=== PATIENT | female | born 1965 | race Caucasian/White ===

== ENCOUNTER 2017-01-15 14:14 | Observation (INO) | payer BC ==
[~2017-01-15] VITALS: Ht 167.6 cm; Wt 85.0 kg
[2017-01-15] VITALS (8 sets, daily range): BP systolic 113–158; BP diastolic 58–95; PULSE 78–84; RESP 16–18; TEMP 97.8–98.5; O2SAT 97–100
[~2017-01-15 14:14] MED LIST: ATOR40TA16 PO; CEFT500T3 PO; CHOL1CAP2 PO; GLIP10TA67 PO; LISI10TA PO; METF1000 PO; METO50TA11 PO
--- NOTE | 2017-01-15 14:30 | PD ---
Physical Exam Time Seen by Provider: 14:29 Narrative 51-year-old female with complaint of chest pain and shortness of breath on and off for the past couple weeks. More frequent occurrences of chest pain recently. Relieved by nitroglycerin that she took earlier today. Chest pain has returned. Dr. Juarez is slab off mill tender. Patient seen in triage. VS reviewed. Awaiting bed placement. Data Data Last Documented VS Vital Signs Date Time Temp Pulse Resp B/P (MAP) Pulse Ox O2 Delivery O2 Flow Rate FiO2 01/15/17 14:16 98.5 78 18 158/95 (116) 98 Orders Orders Electrocardiogram (01/15/17 ) MDM Supervised Visit with SUJATHA: Naa Hughes Jan 15, 2017 14:30
[2017-01-15] MEDS ORDERED: ASPI81CH3 PO (15:12)
[2017-01-15] MEDS ORDERED: NITR0.4S SL (15:13)
[2017-01-15] MEDS ORDERED: ASPIRIN 325 MG TAB PO ONE (15:15)
[2017-01-15 15:17] LABS: BASOPHIL % 0.5 % (0.0-2.0); EOSINOPHIL # 0.2 TH/MM3 (0-0.4); EOSINOPHIL % 2.3 % (0.0-4.0); HEMATOCRIT 38.2 % (35.0-46.0); HEMO FLAGS DIFF FINAL; LYMPH % 37.2 % (9.0-44.0); LYMPHOCYTE # 3.5 TH/MM3 (1.0-4.8); MEAN CELL VOLUME 84.4 FL (80.0-100.0); MEAN CORPUSCULAR HGB CONC 33.2 % (32.0-36.0); MONO % 6.7 % (0.0-8.0); NEUT % 53.3 % (16.0-70.0); PLATELET COUNT 360 TH/MM3 (150-450); RED BLOOD COUNT 4.52 MIL/MM3 (4.00-5.30); RED CELL DISTRIBUTION WIDTH 13.1 % (11.6-17.2); WHITE BLOOD COUNT 9.3 TH/MM3 (4.0-11.0)
[2017-01-15 15:44] LABS: ANION GAP 6 MEQ/L (5-15); BICARBONATE 28.4 MEQ/L (21.0-32.0); BLOOD UREA NITROGEN 13 MG/DL (7-18); CHLORIDE 103 MEQ/L (98-107); GLOMERULAR FILTRATION RATE 81 ML/MIN (>89); POTASSIUM 4.5 MEQ/L (3.5-5.1); SODIUM (NA) 137 MEQ/L (136-145)
[2017-01-15 15:46] LABS: CREATINE KINASE 125 U/L (26-192)
--- NOTE | 2017-01-15 15:50 | RADRPT ---
EXAM DATE/TIME: 01/15/2017 15:29 [facility] COMPARISON: CHEST SINGLE AP, April 20, 2016, 10:56. INDICATIONS : Chest pain. MEDICAL HISTORY : None. SURGICAL HISTORY : None. ENCOUNTER: Initial ACUITY: 2 weeks PAIN SCORE: 5/10 LOCATION: Bilateral chest FINDINGS: PA and lateral views of the chest demonstrate the lungs to be symmetrically aerated without evidence of mass, infiltrate or effusion. The cardiomediastinal contours are unremarkable. Osseous structure s are intact. CONCLUSION: 1. No acute cardiopulmonary findings. Brian Pavon MD on January 15, 2017 at 15:48 Board Certified Radiologist. This report was verified electronically.
[2017-01-15 15:59] LABS: CKMB 1.2 NG/ML (0.5-3.6)
[2017-01-15 16:26] LABS: APTT (PATIENT) 24.8 SEC (24.3-30.1); INTERNATIONAL NORMALIZED RATIO 0.9 RATIO; PROTHROMBIN TIME - PATIENT 10.2 SEC (9.8-11.6)
[2017-01-15] MEDS ORDERED: SODIUM CHLORIDE 0.9% FLUSH 10 ML FLUSH IV FLUSH PRN (17:00)
--- NOTE | 2017-01-15 17:14 | PD ---
HPI Chief Complaint: Chest Pain Time Seen by Provider: 15:00 Travel History International Travel<30 days: No Contact w/Intl Traveler<30days: No Traveled to known affect area: No History of Present Illness HPI 51-year-old female that presents to the ED for evaluation of chest pain. Patient reports that she's had chest pain on and off for the past 3 weeks. She' ll follow with Dr. Patel who did an echocardiogram and was given a do a stress test in 2 weeks when he comes back from vacation. per patient the symptoms have progressively gotten worse and she is taking more nitroglycerin. She's never had taken nitroglycerin before and she was prescribed this by the grease man to help with the symptoms which does seem to help but she continues to have frequent episodes. Per patient usually would she exerts herself. Today she came here today because she also developed shortness of breath or her symptoms and she has no chest pain at this time but she states that the chest pain today was sharp and pressure-like and the nitroglycerin made it better. She states that the pain was 7 out of 10. Currently she states that the only symptom she has a shortness of breath. She does have a history of hypertension and diabetes. She's never had a stent. Per patient her last heart cath well as stress test was done 4 years ago. No allergies to medication. She has been taking aspirin. No Allergies to medication. No other medical issues at this time. She does have family history of heart disease. PFSH Past Medical History Autoimmune Disease: No Blood Disorders: No Heart Rhythm Problems: No Cancer: No Cardiac Catheterization: Yes (NO STENTS AT [facility]) Cardiovascular Problems: Yes High Cholesterol: Yes Chemotherapy: No Chest Pain: Yes Congestive Heart Failure: No Cerebrovascular Accident: No Coronary Artery Disease: Yes Diabetes: Yes Patient Takes Glucophage: No Diminished Hearing: No Endocrine: No Genitourinary: No Hypertension: Yes Medical other: Yes Musculoskeletal: No Neurologic: No Psychiatric: No Reproductive: No Respiratory: No Migraines: No Myocardial Infarction: No Seizures: No Sickle Cell Disease: No Triglycerides - High: Yes Influenza Vaccination: Yes ?: Not : 3 Para: 3 Tubal Ligation: Yes (1988) Past Surgical History Abdominal Surgery: No Cardiac Surgery: No Coronary Artery Bypass Graft: No Ear Surgery: No Endocrine Surgery: No Eye Surgery: No Genitourinary Surgery: No Gynecologic Surgery: No Oral Surgery: No Thoracic Surgery: No Family History Family Myocardial Infarction: Yes Social History Alcohol Use: No Tobacco Use: Yes (quit 1 years ago) Substance Use: No Allergies-Medications (Allergen,Severity, Reaction): Coded Allergies: No Known Allergies (Verified , 01/15/17) Reported Meds & Prescriptions Reported Meds & Active Scripts Active Reported Nitrostat SL (Nitroglycerin) 0.4 Mg Subl 0.4 Mg SL DIRECTED PRN 1 tablet under the tongue as needed for chest pain. Repeat every 5 minutes for a total of 3 DOSES or call 911 if NO relief. Aspirin 81 Low Dose (Aspirin) 81 Mg Chew 81 Mg PO DAILY Fenofibric Acid Dr (Choline Fenofibrate DR) 135 mg Capdr 135 Mg PO DAILY Atorvastatin (Atorvastatin Calcium) 40 Mg Tab 40 Mg PO DAILY Glipizide XL (Glipizide) 10 Mg Akila 10 Mg PO BID Take with breakfast or first main meal of the day Metformin (Metformin HCl) 1,000 Mg Tab 1,000 Mg PO BIDPC With meals Lisinopril-Hctz 10-12.5 Mg Tab 1 Tab PO DAILY Metoprolol Succinate ER 24 HR (Metoprolol Succinate) 50 Mg Tab 50 Mg PO DAILY Review of Systems Except as stated in HPI: all other systems reviewed are Neg Physical Exam Narrative GENERAL: SKIN: Warm and dry. HEAD: Atraumatic. Normocephalic. EYES: Pupils equal and round. No scleral icterus. No injection or drainage. ENT: No nasal bleeding or discharge. Mucous membranes pink and moist. Tongue is midline. No uvula deviation. NECK: Trachea midline. No JVD. CARDIOVASCULAR: Regular rate and rhythm. No murmurs, S3, S4. Chest pain is not reproducible with touch. RESPIRATORY: No accessory muscle use. Clear to auscultation. Breath sounds equal bilaterally. GASTROINTESTINAL: Abdomen soft, non-tender, nondistended. Hepatic and splenic margins not palpable. MUSCULOSKELETAL: Extremities without clubbing, cyanosis, or edema. No obvious deformities. Full range of motion of the upper and lower extremities bilaterally. 2+ pulses bilaterally. NEUROLOGICAL: Awake and alert. No obvious cranial nerve deficits. Motor grossly within normal limits. Five out of 5 muscle strength in the arms and legs. Normal speech. PSYCHIATRIC: Appropriate mood and affect; insight and judgment normal. Data Data Last Documented VS Vital Signs Date Time Temp Pulse Resp B/P (MAP) Pulse Ox O2 Delivery O2 Flow Rate FiO2 01/15/17 15:58 97.8 79 17 118/61 (80) 98 Room Air Orders Orders Electrocardiogram (01/15/17 ) Complete Blood Count With Diff (01/15/17 14:30) Basic Metabolic Panel (Bmp) (01/15/17 14:30) Ckmb (Isoenzyme) Profile (01/15/17 14:30) Troponin I (01/15/17 14:30) Chest, Pa & Lat (01/15/17 14:30) D-Dimer (01/15/17 15:10) Coag Profile (01/15/17 15:10) Aspirin (Aspirin) (01/15/17 15:15) CKMB (01/15/17 15:07) CKMB% (01/15/17 15:07) Admit Order (Ed Use Only) (01/15/17 16:51) Labs Laboratory Tests Test 01/15/17 15:07 01/15/17 16:00 White Blood Count 9.3 TH/MM3 Red Blood Count 4.52 MIL/MM3 Hemoglobin 12.7 GM/DL Hematocrit 38.2 % Mean Corpuscular Volume 84.4 FL Mean Corpuscular Hemoglobin 28.0 PG Mean Corpuscular Hemoglobin Concent 33.2 % Red Cell Distribution Width 13.1 % Platelet Count 360 TH/MM3 Mean Platelet Volume 8.7 FL Neutrophils (%) (Auto) 53.3 % Lymphocytes (%) (Auto) 37.2 % Monocytes (%) (Auto) 6.7 % Eosinophils (%) (Auto) 2.3 % Basophils (%) (Auto) 0.5 % Neutrophils # (Auto) 5.0 TH/MM3 Lymphocytes # (Auto) 3.5 TH/MM3 Monocytes # (Auto) 0.6 TH/MM3 Eosinophils # (Auto) 0.2 TH/MM3 Basophils # (Auto) 0.0 TH/MM3 CBC Comment DIFF FINAL Differential Comment Blood Urea Nitrogen 13 MG/DL Creatinine 0.76 MG/DL Random Glucose 173 MG/DL Calcium Level 9.0 MG/DL Sodium Level 137 MEQ/L Potassium Level 4.5 MEQ/L Chloride Level 103 MEQ/L Carbon Dioxide Level 28.4 MEQ/L Anion Gap 6 MEQ/L Estimat Glomerular Filtration Rate 81 ML/MIN Total Creatine Kinase 125 U/L Creatine Kinase MB 1.2 NG/ML Troponin I LESS THAN 0.02 NG/ML Prothrombin Time 10.2 SEC Prothromb Time International Ratio 0.9 RATIO Activated Partial Thromboplast Time 24.8 SEC D-Dimer Quantitative (PE/DVT) 0.31 MG/L FEU MDM Medical Decision Making Medical Screen Exam Complete: Yes Emergency Medical Condition: Yes Medical Record Reviewed: Yes Interpretation(s) CBC & BMP Diagram 01/15/17 15:07 Calcium Level 9.0 Troponin and CK-MB negative. EKG shows sinus rhythm with no sign of acute ischemia or being around by me and attending. Last Impressions Chest X-Ray 01/15/17 1430 Signed Impressions: Service Date/Time: Sunday, January 15, 2017 15:29 - CONCLUSION: 1. No acute cardiopulmonary findings. Brian Pavon MD Differential Diagnosis Chest pain versus a typical chest pain versus ACS versus PE Narrative Course 51-year-old female that presents to the ED for evaluation of chest pain. Patient was properly examined and was found to have signs and symptoms concerning for cardiac chest pain. She does have symptoms and relief with nitroglycerin. She has a scheduled to make a stress test in the next 2 weeks. Per patient her symptoms are progressively getting worse. She does have risk factors including diabetes, hypertension, family history, high cholesterol. Labs and imaging were ordered. Labs and imaging were negative. Patient will be admitted to the chest pain center for further evaluation and likely stress test. Patient and family agree with this. Case discussed in my attending Dr. Brown who agrees with plan. Procedures EKG Prior to Arrival: No Diagnosis Primary Impression: Chest pain in adult Admitting Information Admitting Physician Requests: Observation Guerrero White Jan 15, 2017 17:14
[2017-01-15 19:14] LABS: CREATINE KINASE 106 U/L (26-192)
[2017-01-15 19:26] LABS: CKMB 1.1 NG/ML (0.5-3.6)
[2017-01-15] MEDS: SODIUM CHLORIDE 0.9% FLUSH 10 ML FLUSH IV FLUSH SCH (21:00)
[2017-01-15 22:23] LABS: CREATINE KINASE 96 U/L (26-192)
[2017-01-16] VITALS (7 sets, daily range): BP systolic 119–135; BP diastolic 65–82; PULSE 67–81; RESP 18; TEMP 98.1–98.4; O2SAT 96–100
[2017-01-16] MEDS ORDERED: NITROGLYCERIN 0.4 MG SL 25 TABS/BTL SL PRN (07:30)
[2017-01-16] MEDS ORDERED: ONDANSETRON HCL 4 MG/2 ML VIAL IV PUSH PRN (07:30)
[2017-01-16] MEDS ORDERED: ACETAMINOPHEN 500 MG CPLT PO PRN (07:30)
--- NOTE | 2017-01-16 08:19 | HHI.HP ---
[facility] Primary Care Physician Michael Orantes MD Chief Complaint Chest pain History of Present Illness 51-year-old female with history of diabetes, hypertension, and hyperlipidemia presents to emergency room for further evaluation of chest pain. Onset approximately 3 weeks ago. Characterized as a quick sharp stabbing pain substernally. Pain last seconds to minutes. After pain dissipates then developed dyspnea described as "someone sitting on my chest" and hurts to take a deep breath. After episodes becomes extremely fatigued. Episodes occur approximately 4-5 times daily. No radiation of pain. Associated symptoms include nausea, dyspnea, diaphoresis. Denying vomiting. No known precipitating factors. No known relieving factors. She recently contacted Dr. Lilly, who performed her heart catheterization in 2008, to reestablish for above symptoms. Completed a carotid bilateral ultrasound and an echocardiogram, reports both tests normal. She is scheduled for a nuclear treadmill test February 04. Review of Systems General: No fatigue,weakness, fever, chills, recent illness, or change in appetite. Has been general state of health. HEENT: No MO CV: As stated above. No CP, pressure, palpitations, intermittent leg pain, dizziness RESP: No SOB, cough, wheeze, sputum production, recent URI, or history of COPD or asthma. GI: No nausea, vomiting, bowel changes, diarrhea, constipation, pain, distention , melena, or blood in the stool. : No dysuria, urgency, frequency, or history of frequent UTIs. [employer]: Last menses 01/10/2017. EXT: No lower leg edema, no paraesthesias MS: No discomfort or change in ROM NEURO: No change in memory, dizziness, difficulty with balance, LOC, motor/ sensory deficits PSYCH: No anxiety, depression, or situational stress. SKIN: No rashes, no concerning lesions Past Family Social History Allergies: Coded Allergies: No Known Allergies (Verified , 01/15/17) Past Medical History Diabetes type II (diagnoses years ago), hypertension, hyperlipidemia, hypertriglyceridemia Past Surgical History tubal ligation Reported Medications Active Reported Nitrostat SL (Nitroglycerin) 0.4 Mg Subl 0.4 Mg SL DIRECTED PRN 1 tablet under the tongue as needed for chest pain. Repeat every 5 minutes for a total of 3 DOSES or call 911 if NO relief. Aspirin 81 Low Dose (Aspirin) 81 Mg Chew 81 Mg PO DAILY Fenofibric Acid Dr (Choline Fenofibrate DR) 135 mg Capdr 135 Mg PO DAILY Atorvastatin (Atorvastatin Calcium) 40 Mg Tab 40 Mg PO DAILY Glipizide XL (Glipizide) 10 Mg Akila 10 Mg PO BID Take with breakfast or first main meal of the day Metformin (Metformin HCl) 1,000 Mg Tab 1,000 Mg PO BIDPC With meals Lisinopril-Hctz 10-12.5 Mg Tab 1 Tab PO DAILY Metoprolol Succinate ER 24 HR (Metoprolol Succinate) 50 Mg Tab 50 Mg PO DAILY Active Ordered Medications Current Medications Medications (Trade) Dose Ordered Sig/Jeromy Route Start Time Stop Time Status Last Admin (NS Flush) 2 ml UNSCH PRN IV FLUSH 01/15/17 17:00 (NS Flush) 2 ml BID IV FLUSH 01/15/17 21:00 (Tylenol) 500 mg Q4H PRN PO 01/16/17 07:30 (Zofran Inj) 4 mg Q6H PRN IV PUSH 01/16/17 07:30 (Nitrostat Sl) 0.4 mg Q5M PRN SL 01/16/17 07:30 (Aspirin) 325 mg DAILY PO 01/16/17 09:00 Family History Father CVA in early 40s. Mother had CABG in late 60s. Social History Known hypertension, diabetes, and hyperlipidemia. No known CAD. Quit smoking March 2016. Prior to quitting smoked 1 pack/daily for 30 years. Rare alcohol use. Denies any illegal drug use. Endorses a sedentary lifestyle. . Grown children, has 13 grandchildren. Works at [employer] [place], [place]. Past Cardiac Testing 2008 Cardiac catheterization-(Dr. Vallecillo) reported to be normal. Catheterization completed after having a abnormal nuclear test. Quit seeing Dr. Lilly after catheterization. Recently restarted seeing him due to recent chest pain as stated above. Carotid bilateral ultrasound 2 weeks ago 40 to being normal. Echocardiogram Wednesday reported to be normal. Scheduled for nuclear treadmill February [id number] Treadmill-unremarkable. Walked 6 minutes, 39 seconds. Physical Exam Vital Signs Vital Signs Date Time Temp Pulse Resp B/P (MAP) Pulse Ox O2 Delivery O2 Flow Rate FiO2 01/16/17 08:02 98.3 01/16/17 07:54 77 18 119/65 (83) 96 01/16/17 07:46 96 21 01/16/17 04:25 98.1 76 18 134/82 (99) 98 01/16/17 03:01 67 01/16/17 01:25 98.4 74 18 135/71 (92) 100 01/15/17 23:48 97 01/15/17 19:18 98.1 81 17 113/59 (77) 97 01/15/17 17:35 98.3 84 18 123/78 (93) 98 01/15/17 17:20 97.8 79 16 123/58 (79) 100 01/15/17 17:14 97.8 79 16 123/58 (79) 99 Room Air 01/15/17 15:58 97.8 79 17 118/61 (80) 98 Room Air 01/15/17 15:09 84 18 127/90 (102) 100 Room Air 01/15/17 15:04 88 18 98 Room Air 01/15/17 14:16 98.5 78 18 158/95 (116) 98 Physical Exam GENERAL: Alert WN, WD, NAD, pleasant, female HEAD: NC, AT EYES: Sclera clear, conjunctiva without injection, pupils equal and round ENT: Mucous membranes pink and moist NECK: Supple, no masses, trachea midline CV: RRR, without murmur, rub, gallop, no JVD, S1-S2 no S3-S4. No carotid or femoral bruits. RESP: Clear lungs throughout bilateral, no crackles, wheeze, rhonchi, symmetrical chest rise, nonlabored, able to speak in full sentences ABD: Soft, NT, ND, no masses, positive bowel tones EXT: Pulses +24, no dependent edema MS: Normal tone 4 extremities, nontender, no obvious deformities, full range of motion NEURO: CN II through CN XII grossly intact, motor strength 5/5 PSYCH: A+O 3, pleasant affect, appropriate speech, appropriate mood and affect , insight and judgment SKIN: Normal turgor, normal texture, no lesions, no rashes, brisk cap refill, even hair distribution, multiple tattoos Laboratory Laboratory Tests Test 01/15/17 15:07 01/15/17 16:00 01/15/17 17:52 01/15/17 21:26 White Blood Count 9.3 Red Blood Count 4.52 Hemoglobin 12.7 Hematocrit 38.2 Mean Corpuscular Volume 84.4 Mean Corpuscular Hemoglobin 28.0 Mean Corpuscular Hemoglobin Concent 33.2 Red Cell Distribution Width 13.1 Platelet Count 360 Mean Platelet Volume 8.7 Neutrophils (%) (Auto) 53.3 Lymphocytes (%) (Auto) 37.2 Monocytes (%) (Auto) 6.7 Eosinophils (%) (Auto) 2.3 Basophils (%) (Auto) 0.5 Neutrophils # (Auto) 5.0 Lymphocytes # (Auto) 3.5 Monocytes # (Auto) 0.6 Eosinophils # (Auto) 0.2 Basophils # (Auto) 0.0 CBC Comment DIFF FINAL Differential Comment Blood Urea Nitrogen 13 Creatinine 0.76 Random Glucose 173 Calcium Level 9.0 Sodium Level 137 Potassium Level 4.5 Chloride Level 103 Carbon Dioxide Level 28.4 Anion Gap 6 Estimat Glomerular Filtration Rate 81 Total Creatine Kinase 125 106 96 Creatine Kinase MB 1.2 1.1 Troponin I LESS THAN 0.02 LESS THAN 0.02 LESS THAN 0.02 Prothrombin Time 10.2 Prothromb Time International Ratio 0.9 Activated Partial Thromboplast Time 24.8 D-Dimer Quantitative (PE/DVT) 0.31 Result Diagram: 01/15/17 1507 01/15/17 1507 Imaging Last Impressions Myocardial Perfusion Scan Nuc Med 01/16/17 0000 Signed Impressions: Service Date/Time: Monday, January 16, 2017 09:46 - CONCLUSION: 1. There is small focal area of reversibility involving the inferolateral wall and the mid left ventricle. 2. Normal left ventricle wall motion and ejection fraction. RISK CATEGORY: Intermediate (1-3%% Annual Mortality Rate) Bryant Neff MD Chest X-Ray 01/15/17 1430 Signed Impressions: Service Date/Time: Sunday, January 15, 2017 15:29 - CONCLUSION: 1. No acute cardiopulmonary findings. Brian Pavon MD Course EKG Sinus rhythm, normal history, no ST or T-segment changes Caprini VTE Risk Assessment Caprini VTE Risk Assessment: No/Low Risk (score <= 1) Caprini Risk Assessment Model Point Value = 1 Point Value = 2 Point Value = 3 Point Value = 5 Age 41-60 Minor surgery BMI > 25 kg/m2 Swollen legs Varicose veins or History of unexplained or recurrent spontaneous Oral contraceptives or hormone replacement Sepsis (< 1 month) Serious lung disease, including pneumonia (< 1 month) Abnormal pulmonary function Acute myocardial infarction Congestive heart failure (< 1 month) History of inflammatory bowel disease Medical patient at bed rest Age 61-74 Arthroscopic surgery Major open surgery (> 45 min) Laparoscopic surgery (> 45 min) Malignancy Confined to bed (> 72 hours) Immobilizing plaster cast Central venous access Age >= 75 History of VTE Family history of VTE Factor V Leiden Prothrombin [id number] Lupus anticoagulant Anticardiolipin antibodies Elevated serum homocysteine Heparin-induced thrombocytopenia Other congenital or acquired thrombophilia Stroke (< 1 month) Elective arthroplasty Hip, pelvis, or leg fracture Acute spinal cord injury (< 1 month) Prophylaxis Regimen Total Risk Factor Score Risk Level Prophylaxis Regimen 0-1 Low Early ambulation 2 Moderate Order ONE of the following: *Sequential Compression Device (SCD) *Heparin 5000 units SQ BID 3-4 Higher Order ONE of the following medications: *Heparin 5000 units SQ TID *Enoxaparin/Lovenox 40 mg SQ daily (WT < 150 kg, CrCl > 30 mL/min) *Enoxaparin/Lovenox 30 mg SQ daily (WT < 150 kg, CrCl > 10-29 mL/min) *Enoxaparin/Lovenox 30 mg SQ BID (WT < 150 kg, CrCl > 30 mL/min) AND/OR *Sequential Compression Device (SCD) 5 or more Highest Order ONE of the following medications: *Heparin 5000 units SQ TID (Preferred with Epidurals) *Enoxaparin/Lovenox 40 mg SQ daily (WT < 150 kg, CrCl > 30 mL/min) *Enoxaparin/Lovenox 30 mg SQ daily (WT < 150 kg, CrCl > 10-29 mL/min) *Enoxaparin/Lovenox 30 mg SQ BID (WT < 150 kg, CrCl > 30 mL/min) AND *Sequential Compression Device (SCD) Assessment and Plan Assessment and Plan #1 Atypical chest-admitted to chest pain center. Ruled out with 3 sets of EKGs , cardiac enzymes, monitor overnight. Seen and evaluated by Dr. Markus Macias. Proceed with nuclear treadmill stress test as previously scheduled with Dr. Lilly on February 04. If unremarkable will later discharged this afternoon. Patient agreeable to plan of care. Chest pain likely musculoskeletal in nature. Encouraged use of a heating pad to affected area and may use [id number] Aleve or Motrin as needed. #2 Diabetes-hold metformin and glipizide at this time, encouraged increasing her daily activity. #3 Hypertension-continue lisinopril/Hydrocort thiazide, hold Metoprolol this morning for treadmill stress test. #4 Hyperlipidemia-continue atorvastatin and fenofibrate 14:40 Nuclear treadmill test reviewed. Small area of mild reversibility inferior wall extending to apex. Instructed to keep appointment on February 04 with Fred Lockett. Alejandra Marie Jan 16, 2017 08:19
[2017-01-16] MEDS ORDERED: ATORVASTATIN 40 MG TAB PO SCH (09:00)
[2017-01-16] MEDS ORDERED: LISINOPRIL 10 MG TAB PO SCH (09:00)
[2017-01-16] MEDS ORDERED: NON-FORMULARY DRUG (Lisinopril-Hctz 1 TAB) PO SCH (09:00)
[2017-01-16] MEDS ORDERED: ASPIRIN 325 MG TAB PO SCH (09:00)
[2017-01-16] MEDS ORDERED: HYDROCHLOROTHIAZIDE 25 MG TAB PO SCH (09:00)
[2017-01-16] MEDS ORDERED: FENOFIBRATE 145 MG TAB PO SCH (09:00)
[2017-01-16] MEDS: SODIUM CHLORIDE 0.9% FLUSH 10 ML FLUSH IV FLUSH SCH (09:33)
--- NOTE | 2017-01-16 13:28 | TR ---
Date Performed: 01/16/2017 Time Performed: 11:29:18 DOCTOR: Markus Macias DRUG LIST: CLINICAL HISTORY: CHEST PAIN REASON FOR TEST: Chest pain R/O ACS REASON FOR ENDING: OBSERVATION: CONCLUSION: Serge protocol completed. Stopped sec to exceeding target heart rate and leg fatigue . Maximum PQ=623 Target HR Achieved=91.0% Maximum ZW=428/82 Total Exercise Time=5:34. No reprod chest discomfort. No ectopy. No st t seg changes to sugg ischemia. Normal bp response. Good exercise matthias ance. Recovery quick and unremarkable.Nuclear images pending. COMMENTS: Conclusion: Normal treadmill exercise. No evidence of ischemia. Radionuclide was inje cted one minute prior to ending test. Nuclear imaging and interpretation are pending.
--- NOTE | 2017-01-16 14:00 | RADRPT ---
EXAM DATE/TIME: 01/16/2017 09:46 [facility] COMPARISON: CHEST PA & LAT, January 15, 2017, 15:29. INDICATIONS : Chest pain and dyspnea x 3 weeks. Angina DOSE: 8.6 mCi Tc99m Myoview at rest 27.4 mCi Tc99m Myoview at stress REST HEART RATE: 91 BPM TARGET HEART RATE: 144 BPM MAX HEART RATE: 155 BPM REST BLOOD PRESSURE: 122/84 mmHg MAX BLOOD PRESSURE: 168/82 mmHg EJECTION FRACTION: 66% MEDICAL HISTORY : Hypertension. Diabetes mellitus type 2. Cardiovascular disease Ex-smoker. SURGICAL HISTORY : Tubal ligation. ENCOUNTER: Initial ACUITY: 1 day PAIN SCALE: 0/10 LOCATION: Bilateral chest TECHNIQUE: The patient underwent upright treadmill exercise in the chest pain center. Continuous ECG tracing wa s monitored during stress. Gated SPECT imaging was performed after stress, and conventional SPECT im aging was performed at rest. The examination was performed on a SPECT/CT scanner, both attenuation-c orrected and non-corrected datasets were reviewed. FINDINGS: DISTRIBUTION: The maximum perfused segment at stress is in the anterolateral wall. PERFUSION STUDY: There is a small focal area of mild reversibility involving the inferolateral and inferior wall in th e mid ventricle extending towards the apex. GATED STUDY: Normal wall motion. CONCLUSION: 1. There is small focal area of reversibility involving the inferolateral wall and the mid left ventr icle. 2. Normal left ventricle wall motion and ejection fraction. RISK CATEGORY: Intermediate (1-3% Annual Mortality Rate) Bryant Neff MD on January 16, 2017 at 13:54 Board Certified Radiologist. This report was verified electronically.
--- NOTE | 2017-01-16 14:19 | HHI.DCPOC ---
Discharge Care Plan Diagnosis: (1) Musculoskeletal chest pain (2) Anxiety (3) Type 2 diabetes mellitus Goals to Promote Your Health * To prevent worsening of your condition and complications * To maintain your health at the optimal level Directions to Meet Your Goals Take your medications as prescribed Follow your dietary instruction Follow activity as directed Keep your appointments as scheduled Take your immunizations and boosters as scheduled If your symptoms worsen call your PCP, if no PCP go to Urgent Care Center or Emergency Room Smoking is Dangerous to Your Health. Avoid second hand smoke Call the 24-hour hour crisis hotline for domestic abuse at Alejandra Marie Jan 16, 2017 14:19
--- NOTE | 2017-01-16 15:49 | EKG ---
Date Performed: 01/15/2017 Time Performed: 21:17:08 PTAGE: 51 years EKG: Sinus rhythm LOW QRS VOLTAGE IN PRECORDIAL LEADS Poor R wave progression BORDERLINE ECG PREVIOUS TRACING : 01/15/2017 18.20 Since previous tracing, no significant change noted DOCTOR: Markus Macias Interpretating Date/Time 01/16/2017 15:48:29
--- NOTE | 2017-01-16 15:51 | EKG ---
Date Performed: 01/15/2017 Time Performed: 15:13:35 PTAGE: 51 years EKG: Sinus rhythm LOW QRS VOLTAGE IN PRECORDIAL LEADS Poor R wave progression BORDERLINE ECG PREVIOUS TRACING : 04/20/2016 11.47 Since previous tracing, no significant change noted DOCTOR: Markus Macias Interpretating Date/Time 01/16/2017 15:49:35
--- NOTE | 2017-01-16 15:52 | EKG ---
Date Performed: 01/15/2017 Time Performed: 18:20:58 PTAGE: 51 years EKG: Sinus rhythm LOW QRS VOLTAGE IN PRECORDIAL LEADS BORDERLINE ECG PREVIOUS TRACING : 01/15/2017 15.13 Since previous tracing, no significant change noted DOCTOR: Markus Macias Interpretating Date/Time 01/18/2017 07:42:06
== END 2017-01-16 15:16 | disposition home or self-care (01) ==
LOC: NEPE 14:14 → NEDA 16:52 → NEPFCDU 17:47
PROVIDERS: ADMIT Internal Medicine Interventional Cardiology; ATTEND Internal Medicine Interventional Cardiology
DX: R07.89 Other chest pain (principal); R06.02 Shortness of breath; I10 Essential (primary) hypertension; E11.9 Type 2 diabetes mellitus without complications; F41.9 Anxiety disorder, unspecified; Z82.49 Family history of ischemic heart disease and other diseases of the circulatory system; I25.10 Atherosclerotic heart disease of native coronary artery without angina pectoris; E78.5 Hyperlipidemia, unspecified; Z79.84 Long term (current) use of oral hypoglycemic drugs; Z87.891 Personal history of nicotine dependence
CPT/HCPCS: 71020; 78452; 80048; 82550; 82552; 84484; 85025; 85379; 85610; 85730; 93005; 93017; 99285; A9502; G0378